=== PATIENT | female | born 2005 | race Caucasian/White ===

== ENCOUNTER 2024-05-24 20:10 | Emergency (ER) | payer OTHER ==
[2024-05-24 20:50] LABS: Absolute Basophils 0.1 K/uL (0-0.5); Absolute Eosinophils 0.1 K/uL (0-0.5); Absolute Lymphocytes (CBC) 1.4 K/uL (0.7-4.9); Absolute Monocytes 0.5 K/uL (0.1-1.3); Basophils % 0.8 % (0-1.3); Eosinophils % 2.1 % (0-4.4); Hematocrit 35.4 % (36.0-45.0); Hemoglobin 11.5 g/dL (12.0-15.0); Lymphocytes % 19.5 % (15.3-44.8); MCH 23.6 pg (27.0-35.0); MCHC 32.5 g/dL (32.0-36.0); MCV 72.7 fL (80-100); MPV 7.1 fL (7.6-11.3); Monocytes % 6.8 % (3.3-12.3); Neutrophils % 70.8 % (41.7-73.7); Platelets 428 thou/uL (152-406); RBC Red Blood Cell Count 4.88 M/uL (3.86-4.86); Red Cell Distribution Width 17.5 % (12.1-15.2)
[2024-05-24] MEDS ORDERED: NA CHLORIDE 0.9% 1,000 ML ONE (20:53)
[2024-05-24 21:03] LABS: SARS-CoV-2 Antigen CONTROL BLUE LINE VIS/BG OK; SARS-CoV-2 Antigen Rapid Res Negative (Negative)
[2024-05-24 21:14] LABS: Anion Gap 8.3 mEq/L (5.0-15.0); Potassium 3.3 mEq/L (3.5-5.1); Thyroid Stimulating Hormone 0.599 uIU/mL (0.358-3.740)
[2024-05-24 22:26] LABS: Monoscreen NEG (NEG)
--- NOTE | 2024-05-24 22:36 | RAD REPORT ---
EXAMINATION: TWO VIEW CHEST XR CLINICAL INDICATION: MALAISE TECHNIQUE: 2 views of the chest was performed. COMPARISON: No prior exam. FINDINGS: Mild interstitial pulmonary edema suspected. The heart is mildly prominent in size. No displaced frac tures evident. IMPRESSION: Findings suggest mild CHF or volume overload.
[2024-05-24 22:49] LABS: Specific Gravity 1.019 (1.005-1.030); Urine Bacteria <20 /HPF (<20); Urine Bilirubin NEGATIVE (Negative); Urine Blood 2+ (Negative); Urine Clarity Extremely Turbid (Clear); Urine Color Light-Yellow (Yellow); Urine Culture Reflex Order NOT NEEDED; Urine Glucose NEGATIVE (Negative); Urine Ketones NEGATIVE (Negative); Urine Micro Reflex YN NO BILL MICROSCOPIC; Urine Mucus 1+ /HPF (None Seen); Urine Nitrite NEGATIVE (Negative); Urine Protein NEGATIVE (Negative); Urine Urobilinogen Normal (Normal); Urine WBC <5 /HPF (<5); Urine pH 5.5 (5.0-7.0)
[2024-05-24 22:51] LABS: Specific Gravity 1.019 (1.005-1.030)
--- NOTE | 2024-05-24 23:08 | ER ---
Nurse's Notes [facility] Name: Jelena Arevalo Age: 18 yrs Sex: Female : 2005 Arrival Date: 05/24/2024 Time: 20:10 Bed 6 Private MD: Diagnosis: Anemia, unspecified;Other malaise and fatigue;Acute pulmonary edema-mild Presentation: 05/24 20:22 Chief complaint: Patient states: fever, body aches, and headache for the last four cp4 days. Reports she is 1 month . Coronavirus screen: Vaccine status: Patient reports being unvaccinated. Client denies travel out of the [place] in the last 14 days. At this time, the client does not indicate any symptoms associated with coronavirus-19. Ebola Screen: Patient negative for fever greater than or equal to 101.5 degrees Fahrenheit, and additional compatible Ebola Virus Disease symptoms Patient denies exposure to infectious person. Patient denies travel to an Ebola-affected area in the 21 days before illness onset. No symptoms or risks identified at this time. Initial Sepsis Screen: Does the patient meet any 2 criteria? HR > 90 bpm. No. Patient's initial sepsis screen is negative. Does the patient have a suspected source of infection? No. Patient's initial sepsis screen is negative. Risk Assessment: Do you want to hurt yourself or someone else? Patient reports no desire to harm self or others. Onset of symptoms was May 20, 2024. 20:22 Method Of Arrival: Ambulatory cp4 20:22 Acuity: SARAI 3 cp4 Triage Assessment: 20:23 General: Appears in no apparent distress. uncomfortable, Behavior is calm, cooperative, cp4 appropriate for age. 23:14 Pain: Also complains of no other associated symptoms. 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 - Infectious Disease History:: Denies. - Social history:: Smoking status: Patient denies any tobacco usage or history of. Screenin:49 [facility] ED Fall Risk Assessment (Adult) History of falling in the last 3 months, cm10 including since admission No falls in past 3 months (0 pts) Confusion or Disorientation No (0 pts) Intoxicated or Sedated No (0 pts) Impaired Gait No (0 pts) Mobility Assist Device Used No (0 pt) Altered Elimination No (0 pt) Score/Fall Risk Level 0 - 2 = Low Risk Oriented to surroundings, Maintained a safe environment, Hourly rounding (assess needs \T\ fall precautionary measures) done. Abuse screen: Denies threats or abuse. Denies injuries from another. Nutritional screening: No deficits noted. Tuberculosis screening: No symptoms or risk factors identified. Assessment: 20:47 General: Appears in no apparent distress. comfortable, Behavior is calm, cooperative. cm10 Pain: Complains of pain in head Pain does not radiate. Pain currently is 5 out of 10 on a pain scale. Quality of pain is described as pressure, Pain began 2-3 days ago. Is intermittent. Neuro: No deficits noted. Level of Consciousness is awake, alert, obeys commands, Oriented to person, place, time, situation, Appropriate for age Reports headache. Respiratory: No deficits noted. Airway is patent Respiratory effort is even, unlabored, Respiratory pattern is regular, symmetrical. 20:47 Derm: No deficits noted. Skin is healthy with good turgor. cm10 Vital Signs: 20:22 BP 156 / 81; Pulse 102; Resp 18; Temp 98.4; Pulse Ox 100% ; Weight 102.51 kg; Height 5 cp4 ft. 5 in. ; Pain 5/10; 20:47 BP 139 / 87; Pulse 98; Resp 18; Pulse Ox 99% on R/A; cm10 22:00 BP 143 / 83; Pulse 91; Resp 18; Pulse Ox 98% ; cp4 23:13 BP 140 / 84; Pulse 87; Resp 18; Pulse Ox 99% ; cp4 20:22 Body Mass Index 37.61 (102.51 kg, 165.1 cm) cp4 20:22 Pain Scale: Adult cp4 ED Course: 20:13 Patient arrived in ED. ra3 20:13 Charlene Park [facility]-C [facility]. cp4 20:23 Triage completed. cp4 20:23 Arm band placed on right wrist. Patient placed in waiting room. cp4 20:24 Roger Abraham MD is Attending Physician. sb4 20:46 Flu Sent. cm10 20:46 SARS RAPID Sent. cm10 20:46 TSH Sent. cm10 20:46 BMP Sent. cm10 20:46 CBC with Diff Sent. cm10 20:47 Initial lab(s) drawn, by me, sent to lab. COVID swab sent to lab. Flu and/or RSV swab cm10 sent to lab. Inserted saline lock: 20 gauge in right forearm, using aseptic technique. Blood collected. Flushed with 10 mL NS. 20:50 Patient has correct armband on for positive identification. Bed in low position. Call cm10 light in reach. Side rails up X 1. Provided Education on: ER process and procedures.. Pulse ox on. NIBP on. 22:34 Chest Pa And Lat (2 Views) XRAY In Process Unspecified. EDMS 23:08 Chevy Purvis MD is Referral Physician. sb4 23:09 Viji Carney is Primary Nurse. cp4 23:14 No provider procedures requiring assistance completed. intact, bleeding controlled, No cp4 redness/swelling at site. Pressure dressing applied. Administered Medications: 20:56 Drug: NS 0.9% IV 1000 ml IV at 1 bolus Per protocol; to be given as a bolus over 60 cm10 minutes Route: IV; Rate: 1 bolus; Site: right forearm; 22:10 Follow up: Response: No adverse reaction; IV Status: Completed infusion cp4 Medication: 20:49 VIS not applicable for this client. cm10 Outcome: 23:07 Discharge ordered by MD. sb4 23:14 Discharged to home ambulatory, cp4 23:14 Condition: stable 23:14 Discharge instructions given to patient, Instructed on discharge instructions, follow up and referral plans. Demonstrated understanding of instructions, follow-up care, 23:15 Patient left the ED. cp4 Signatures: Dispatcher [employer] [facility] Charlene Park PA-C PALeticia sb4 Karrie Sanchez, RN RN cm10 Viji Carney cp4 Mayelin Soliz ra3 Corrections: (The following items were deleted from the chart) 20:49 20:47 Respiratory: No deficits noted. Airway is patent Respiratory effort is even, cm10 unlabored, Respiratory pattern is regular, symmetrical, cm10
--- NOTE | 2024-05-24 23:08 | EDPHYS ---
Physician Documentation [facility] Name: Jelena Arevalo Age: 18 yrs Sex: Female : 2005 Arrival Date: 05/24/2024 Time: 20:10 Bed 6 Private MD: LUIS ENRIQUE Physician Roger Abraham HPI: 05/24 20:45 This 18 yrs old Female presents to ER via Ambulatory with complaints of Headache - body sb4 aches, [id number] . 22:09 patient reports malaise, fatigue, body aches, and diarrhea for the past 4 days. she is sb4 1 month post from a csection. states she has recovered well, is breast feeding regularly. she denies any sick contacts. no reported fever, chills, chest pain, shortness of breath, cough, nausea, vomiting, sore throat, sinus congestion. denies any major medical history, does not take any daily medications. 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 - Infectious Disease History:: Denies. - Social history:: Smoking status: Patient denies any tobacco usage or history of. ROS: 22:09 Cardiovascular: Negative for chest pain, palpitations, and edema, Respiratory: Negative sb4 for shortness of breath, cough, wheezing, and pleuritic chest pain, 22:09 Constitutional: Positive for body aches, fatigue, malaise, 22:09 Neuro: Positive for headache, 22:09 All other systems are negative, Exam: 22:09 Constitutional: This is a well developed, well nourished patient who is awake, alert, sb4 and in no acute distress. Head/Face: Normocephalic, atraumatic. Eyes: Extra-ocular motions intact. Periorbital areas with no swelling, redness, or edema. ENT: Mucous membranes moist. Cardiovascular: Regular rate and rhythm with a normal S1 and S2. Respiratory: Lungs have equal breath sounds bilaterally, clear to auscultation and percussion. No rales, rhonchi or wheezes noted. No increased work of breathing, no retractions or nasal flaring. Abdomen/GI: Soft, non-tender, no distension. Skin: Warm, dry with normal turgor. Normal color with no rashes, no lesions, and no evidence of cellulitis. Vital Signs: 20:22 BP 156 / 81; Pulse 102; Resp 18; Temp 98.4; Pulse Ox 100% ; Weight 102.51 kg; Height 5 cp4 ft. 5 in. ; Pain 5/10; 20:47 BP 139 / 87; Pulse 98; Resp 18; Pulse Ox 99% on R/A; cm10 22:00 BP 143 / 83; Pulse 91; Resp 18; Pulse Ox 98% ; cp4 23:13 BP 140 / 84; Pulse 87; Resp 18; Pulse Ox 99% ; cp4 20:22 Body Mass Index 37.61 (102.51 kg, 165.1 cm) cp4 20:22 Pain Scale: Adult cp4 MDM: 20:20 Patient medically screened. sb4 23:11 Data reviewed: vital signs, nurses notes, lab test result(s), radiologic studies, I sb4 have discussed the patient's presentation/case with the attending Emergency Department Physician; and as a result, I will discharge patient. Consideration of Admission/Observation Escalation of care including admission/observation considered. Test considered but Not performed: CT: CT chest, patient refused. Historians other than the Patient: Parent: mother. Counseling: I had a detailed discussion with the patient and/or guardian regarding the historical points, exam findings, and any diagnostic results supporting the discharge/admit diagnosis, the presence of at least one elevated blood pressure reading (>120/80) during this emergency department visit, lab results, radiology results, the need for further work-up and treatment in the hospital. Refusal of service: The patient/guardian displays adequate decision making capability and despite a detailed discussion of alternatives, benefits, risks, and consequences refuses: Admission to the hospital for further work-up and treatment, CT Scan. ED course: I discussed lab and imaging results with patient and mother. Discussed that there is a possibility she could have peripartum cardiomyopathy or some degree of heart failure. I recommended admission for further workup and cardiology evaluation however she refuses. She wishes to go home at this time and will follow-up on Sunday. She understands the risks of leaving at this time, worsening of condition that could lead to respiratory distress and ultimately if untreated. 05/24 20:32 Order name: CBC with Diff; Complete Time: 21:06 sb4 05/24 20:32 Order name: BMP; Complete Time: 22:54 sb4 05/24 20:32 Order name: TSH; Complete Time: 22:54 sb4 05/24 20:32 Order name: SARS RAPID; Complete Time: 21:06 sb4 05/24 20:32 Order name: Flu; Complete Time: 21:18 sb4 05/24 21:22 Order name: UAM; Complete Time: 22:51 sb4 05/24 21:22 Order name: Test, Urine; Complete Time: 22:51 sb4 05/24 21:23 Order name: [place] Screen Profile; Complete Time: 22:26 sb4 05/24 22:38 Order name: Add On-Lab sb4 05/24 22:41 Order name: NT PRO-BNP; Complete Time: 22:54 EDMS 05/24 21:22 Order name: Chest Pa And Lat (2 Views) XRAY; Complete Time: 22:37 sb4 05/24 20:32 Order name: IV Start; Complete Time: 20:46 sb4 Administered Medications: 20:56 Drug: NS 0.9% IV 1000 ml IV at 1 bolus Per protocol; to be given as a bolus over 60 cm10 minutes Route: IV; Rate: 1 bolus; Site: right forearm; 22:10 Follow up: Response: No adverse reaction; IV Status: Completed infusion cp4 Disposition Summary: 05/24/24 23:07 Discharge Ordered Problem: new sb4 Symptoms: are unchanged sb4 Condition: Stable sb4 Diagnosis - Anemia, unspecified sb4 - Other malaise and fatigue sb4 - Acute pulmonary edema - mild sb4 Followup: sb4 - With: Chevy Purvis MD - When: 2 - 3 days - Reason: Further diagnostic work-up, Recheck today's complaints, Re-evaluation by your physician Discharge Instructions: - Discharge Summary Sheet sb4 - Pulmonary Edema, [id number] sb4 - Iron Deficiency Anemia, Adult, [id number] sb4 Forms: - Patient Portal Instructions sb4 - Leadership Thank You Letter sb4 Signatures: Dispatcher [employer] Cahrlene Blandon PA-C PA-C sb4 Karrie Sanchez RN RN cm10 Viji Carney cp4 Corrections: (The following items were deleted from the chart) 20:33 20:33 CBC+H.LAB.BRZ ordered. EDMS EDMS 20:33 20:33 BASIC METABOLIC PANEL+C.LAB.BRZ ordered. EDMS EDMS 20:33 20:33 THYROID STIMULAT HORMONE+C.LAB.BRZ ordered. EDMS EDMS 20:33 20:33 SARS-COV-2 Antigen Rapid+I.LAB.BRZ ordered. EDMS EDMS 20:33 20:33 Influenza Screen (A \T\ B)+BA.LAB.BRZ ordered. EDMS EDMS
[2024-05-25 03:42] VITALS: TEMP 98.4
[2024-05-25 03:48] VITALS: BP 140/84; O2SAT 99
== END 2024-05-24 23:15 | disposition home or self-care (01) ==
LOC: ER 20:10
DX: D64.9 Anemia, unspecified (principal); J81.0 Acute pulmonary edema; R53.83 Other fatigue; R51.9 Headache, unspecified; Z11.52 Encounter for screening for COVID-19
CPT/HCPCS: 85025; 81001; 80048; 36415; 86308; 81025; 84443; 83880; 87804 ×2; 71046; 87811; J7030